=== PATIENT | male | born 2000 | race Caucasian/White ===

== ENCOUNTER 2023-10-04 09:39 | Day surgery (SDC) | payer OTHER ==
[~2023-10-04] VITALS: Ht 177.8 cm; Wt 90.4 kg
[~2023-10-04 09:39] MED LIST: TRANEXAMIC ACID 100 MG/ML 10ML VIAL IV ONE
[2023-10-04] MEDS ORDERED: ROPIvacaine 0.5% 30ML VIAL As Ordered ONE (10:51)
[2023-10-04] MEDS ORDERED: CLINDAMYCIN 900 MG in IV 1 EA IV ONE (10:55)
[2023-10-04] MEDS ORDERED: LR 1,000 ML IV SCH ×2 (10:55→16:05)
[2023-10-04] MEDS ORDERED: fentaNYL 100 MCG/2 ML INJECTION As Ordered ONE (11:26)
[2023-10-04] MEDS ORDERED: MIDAZOLAM INJ 2MG/2ML VIAL As Ordered ONE (11:26)
[2023-10-04] MEDS ORDERED: propofoL 200 MG/20 ML VIAL As Ordered ONE (11:26)
[2023-10-04] MEDS ORDERED: ACETAMINOPHEN 1000MG 100ML IV BAG As Ordered ONE (11:26)
[2023-10-04] MEDS ORDERED: LIDOCAINE 2% 100MG/5ML SDV (FOR ANES.) As Ordered ONE (11:26)
[2023-10-04] MEDS ORDERED: ONDANSETRON 4MG 2ML VIAL As Ordered ONE (11:26)
[2023-10-04] MEDS ORDERED: KETOROLAC 60MG 2ML VIAL As Ordered ONE (11:26)
[2023-10-04] MEDS ORDERED: TRANEXAMIC ACID 100 MG/ML 10ML VIAL As Ordered ONE ×2 (11:49→14:55)
[2023-10-04] MEDS ORDERED: fentaNYL 250 MCG/5 ML INJECTION As Ordered ONE (13:25)
[2023-10-04] MEDS ORDERED: VANCOMYCIN 1000MG/20ML VIAL As Ordered ONE (15:23)
[2023-10-04] MEDS ORDERED: ONDANSETRON 4MG 2ML VIAL IV PRN (16:05)
[2023-10-04] MEDS ORDERED: METOCLOPRAMIDE INJ 10MG/2ML VIAL IV PRN (16:05)
[2023-10-04] MEDS ORDERED: fentaNYL 100 MCG/2 ML INJECTION IV PRN (16:05)
[2023-10-04] MEDS ORDERED: MORPHINE 2 MG/ML 1ML VIAL IV PRN (16:05)
[2023-10-04] MEDS: oxyCODONE 5MG TAB PO PRN ×2 (17:36→18:12)
[2023-10-04 18:35] VITALS: BP 131/79; TEMP 97.9; O2SAT 100
== END 2023-10-04 19:13 | disposition home or self-care (01) ==
LOC: M SDC 09:39
PROVIDERS: ATTEND Orthopaedic Surgery
DX: S86.811A Strain of other muscle(s) and tendon(s) at lower leg level, right leg, initial encounter (principal); V86.45XA Person injured while boarding or alighting from a 3- or 4- wheeled all-terrain vehicle (ATV), initial encounter; Y93.I9 Activity, other involving external motion; Y92.9 Unspecified place or not applicable; Z88.0 Allergy status to penicillin; Z87.891 Personal history of nicotine dependence
CPT/HCPCS: 27428; 76000; C1713; C9290; J0131; J0665; J0737; J1100; J1885; J2250; J2405; J3010; J3370

== ENCOUNTER → 2024-09-15 | Outpatient (REF) | LOC: M PLAIMG 11:21 | PROVIDERS: ATTEND Nurse Practitioner Family | DX: R07.2 Precordial pain (principal); M25.519 Pain in unspecified shoulder; M25.552 Pain in left hip; M54.2 Cervicalgia; M54.6 Pain in thoracic spine; M54.50 Low back pain, unspecified; M25.539 Pain in unspecified wrist; M25.572 Pain in left ankle and joints of left foot; M79.672 Pain in left foot ==